=== PATIENT | male | born 1990 | race Caucasian/White ===

== ENCOUNTER 2018-04-01 18:58 | Emergency (ER) | payer SELFPAY ==
[2018-04-01] MEDS ORDERED: KETOROLAC TROMETHAMINE 60 MG/2 ML VIAL IM ONE (19:54)
[2018-04-01] MEDS ORDERED: ONDANSETRON HCL 4 MG TAB.RAPDIS PO ONE (19:54)
--- NOTE | 2018-04-01 19:57 | ED Physician Documentation ---
General Adult - HISTORIAN Historian: patient - HPI Stated Complaint: espana nausea Chief Complaint: General Adult Additional Information: Frontal aching ESPANA and occipital ESPANA today. Has felt nauseated today. No treatment attempted. Feels subjectively hot at time of exam. Has had these symptoms before. Hasn't eaten today. No cough. Has just begun process for bariatric surgery. No other modifying factors or associated signs. - ROS CONST: other (above) - PAST HX Past History: hypertension Other History: other (anxiety) Surgeries/Procedures: none Allergies/Adverse Reactions: Allergies Allergy/AdvReac Type Severity Reaction Status Date / Time No Allergy Information Allergy Verified 04/01/18 19:20 Available Home Medications: Ambulatory Orders Medication Instructions Recorded Fluoxetine HCl 60 mg PO D 04/01/18 Hydrochlorothiazide [Hydrodiuril] 25 mg PO D 04/01/18 - SOCIAL HX Smoking History: quit greater than 1 year, cigarettes - FAMILY HX Family History: Yes (F at 56 with DM) - VITAL SIGNS Vital Signs: Vital Signs Temp Pulse Resp BP Pulse Ox 98.7 F 101 H 22 110/58 94 04/01/18 18:59 04/01/18 18:59 04/01/18 18:59 04/01/18 18:59 04/01/18 18:59 - REVIEWED ASSESSMENTS Nursing Assessment Reviewed: Yes Vitals Reviewed: Yes Progress - Progress Progress: 2044, ESPANA better, nausea resolved. Doesn't want a script for nausea meds. ED Results Lab/Radiology - Orders Orders: ED Orders Category Date Time Status Ketorolac Tromethamine [Toradol] Med 04/01/18 19:54 Once 60 mg IM NOW ONE Ondansetron HCl Rapdis [Zofran Odt] Med 04/01/18 19:54 Once 4 mg PO NOW ONE General Adult Physical Exam - PHYSICAL EXAM GENERAL APPEARANCE: morbidly obese EENT: eye inspection normal, ENT inspection normal, pharynx normal (cryptic tonsils), no signs of dehydration NECK: normal inspection, supple. No: lymphadenopathy RESPIRATORY: no resp distress, breath sounds normal CVS: reg rate & rhythm, heart sounds normal, no murmur ABDOMEN: normal bowel sounds BACK: normal inspection SKIN: warm/dry, normal color EXTREMITIES: normal range of motion, no evidence of injury, no edema NEURO: CN's nml as tested, motor nml, sensation nml, cognition normal Discharge Clincal Impression: Nausea alone, Headache Referrals: Primary Doctor,No [Primary Care Provider] - 2 Days Condition: Good Disposition: 01 HOME, SELF-CARE Decision to Admit: NO Decision Time: 20:52
[2018-04-01 21:08] VITALS: BP 111/56
== END 2018-04-01 21:00 | disposition home or self-care (01) ==
LOC: ED 18:58
DX: R11.0 Nausea (principal); R51 Headache
CPT/HCPCS: 96372; 99283; J1885; A9270